=== PATIENT | female | born 1945 | race Caucasian/White ===

== ENCOUNTER 2018-06-22 10:44 | Outpatient (CLI) | payer MEDICARE, MEDICAID ==
[~2018-06-22] VITALS: Ht 160 cm; Wt 61.4 kg
--- NOTE | ~2018-06-22 | HEMODYNAMI ---
PATIENT:TERRANCE CHAPA MEDICAL RECORD: [id number] : 43 LOCATION:[facility] ADMISSION DATE: 06/22/18 Generatedon:06/22/201814:05 Patient name: TERRANCE CHAPA Patient #: [id number] SSN: : Date of study: 06/22/2018 Page: Of Hemodynamic Procedure Report Patient Data Patient Demographics Procedure consent was obtained First Name: TERRANCE Gender: Female Last Name: EDUARD : 1945 Patient #: [id number] Age: 72 year(s) Race: Unknown Additional ID: [id number] Contact details [address]: [address] [place] [address] State: [place] City: [place] Zip code: [address] Past Medical History Allergies Allergen Reaction Date Comments Reported Other allergy 06/22/2018 Cephalexin Admission Admission Data Admission Date: 06/22/2018 Admission Time: 10:44 Admit Source: Other Lab Results Lab Result Date: 06/22/2018 Lab Result Time: 11:56 Biochemistry Name Units Result Min Max BUN mg/dl 13 --(--*-)-- 7 18 Creatinine mg/dl 0.4 *-(----)-- 0.6 1.3 CBC Name Units Result Min Max Hematocrit % 45.3 --(-*--)-- 42 54 Hemoglobin g/dl 15.5 --(-*--)-- 13.5 17.5 Procedure Procedure Types Cath Procedure Diagnostic Procedure LHC LHC w/Coronaries Sedation Charges Moderate Sedation up to 15 minutes PCI Procedure Coronary Stent Coronary Stent Initial Procedure Description Procedure Date Procedure Date: 06/22/2018 Procedure Start Time: 13:41 Procedure End Time: 14:04 Procedure Staff Name Function Hank Caceres MD Performing Physician Rohit Vora RT Monitor Safia Marshall RT Scrub Swati Stacy RN Nurse Procedure Data Cath Procedure Fluoroscopy Diagnostic fluoroscopy Total fluoroscopy Time: 4.3 time: 4.3 min min Diagnostic fluoroscopy Total fluoroscopy dose: 734 dose: 734 mGy mGy Contrast Material Contrast Material Type Amount (ml) Isovue 300 102 Entry Location Entry Primary Successful Side Size Upsize Upsize Entry Closure Clemente ccessful Closure Location (Fr) 1 (Fr) 2 (Fr) Remarks Device Remarks Radial Right 6 Fr Mechanical artery Short Compression Estimated blood loss: 10 ml Diagnostic catheters Device Type Used For End Catheter Placement DIAGNOSTIC Trion 110cm 5 Procedure Fr catheter ([id number]) Procedure Complications No complications Procedure Medications Medication Administration Route Dosage Oxygen NC 2 l/min Lidocaine 2% added to field 20 Heparin Flush Bag added to field 2 bags (1000units/500ml NS) 0.9% NaCl I.V. 100 ml/hr Radial Cocktail I.A. 1 syringe (Verapomil 2mg/Nitro 400mcg/Heparin 1500units) Versed I.V. 1 mg Fentanyl I.V. 50 mcg Versed I.V. 0.5 mg Fentanyl I.V. 25 mcg Heparin Bolus I.V. 6000 units Versed I.V. 0.5 mg Fentanyl I.V. 25 mcg Plavix P.O. 600 mg Hemodynamics Rest HGB: 15.5 (g/dl) Heart Rate: 67 (bpm) Pressure Samples Time Site Value (mmHg) Purpose Heart Use Rate(bpm) 13:44 LV 106/1,8 Snapshot 70 13:45 AO 106/52(76) Pullback 72 13:45 LV 108/3,11 Pullback 72 13:45 AO 146/52(65) Snapshot 71 Gradients Valve Time Site 1 Site 2 Mean SEP/DFP Peak To Heart Use (mmHg) (sec/min) Peak Rate (mmHg) (bpm) Aortic 13:45 LV AO 7 17 2 72 108/3,11 106/52(76) Calculations Valve P-P Mean Valve Index Valve Source Name Gradient Area Flow (cm2) Aortic 2 7 2 7 Snapshots Pre Cath Intra NCS Post Cath Vital Signs Time Heart Resp SPO2 etCO2 NIBP (mmHg) Rhythm Pain Sedation Rate (ipm) (%) (mmHg) Status Level (bpm) 13:27:28 69 50 96 0 142/66(114) NSR 0 (11) 10(A) , No pain 13:31:34 69 19 92 0 120/65(96) NSR 0 (11) 10(A) , No pain 13:35:36 67 16 93 0 122/67(100) NSR 0 (11) 10(A) , No pain 13:39:39 62 17 92 0 121/64(94) NSR 0 (11) 9(A) , No pain 13:43:49 70 16 95 0 116/57(82) NSR 0 (11) 9(A) , No pain 13:47:55 67 16 93 0 106/61(81) NSR 0 (11) 9(A) , No pain 13:52:01 71 14 92 0 105/59(80) NSR 0 (11) 9(A) , No pain 13:56:09 70 16 95 0 107/56(85) NSR 0 (11) 9(A) , No pain 14:00:15 72 15 95 0 110/62(74) NSR 0 (11) 10(A) , No pain 14:04:18 70 14 98 0 117/64(87) NSR 0 (11) 10(A) , No pain Medications Time Medication Route Dose Verified Delivered Reason Note s Effectiveness by by 13:27:43 Oxygen NC 2 l/min Hank Buffie used for Henry Stacy RN procedure 13:27:50 Lidocaine 2% added 20ml Hank Hank for local to vial Henry Caceres MD anesthetic field 13:27:59 Heparin Flush added 2 bags Hank Hank used for Bag to Henry Caceres MD procedure (1000units/500ml field NS) 13:28:08 0.9% NaCl I.V. 100 Hank Buffie Per physician ml/hr Henry Stacy RN 13:28:20 Radial Cocktail I.A. 1 Hank Hank for (Verapomil syringe Henry Caceres MD vasodilation 2mg/Nitro 400mcg/Heparin 1500units) 13:35:49 Versed I.V. 1 mg Hank Buffie for sedation Henry Stacy RN 13:35:55 Fentanyl I.V. 50 mcg Ahnk Buffie for sedation Henry Stacy RN 13:40:39 Versed I.V. 0.5 mg Hank Buffie for sedation Henry Stacy RN 13:40:44 Fentanyl I.V. 25 mcg Hank Buffie for sedation Henry Stacy RN 13:48:00 Versed I.V. 0.5 mg Hank Buffie for sedation Henry Stacy RN 13:48:04 Fentanyl I.V. 25 mcg Hank Longoria for sedation Henry Stacy RN 13:52:53 Heparin Bolus I.V. 6000 Hank Longoria for veri fied units Henry Stacy RN anticoagulation with dr caceres 14:03:34 Plavix P.O. 600 mg Hank Stacy RN antiplatelet therapy Procedure Log Time Note 13:08:39 Informed consent obtained and on chart 13:08:42 Admit Source: Other 13:08:55 Diagnostic Cath status Elective 13:08:57 Time tracking: Regular hours (M-F 7:00 - 5:00) 13:09:00 Plan of Care:Hemodynamics will remain stable., Cardiac rhythm will remain stable., Comfort level will be maintained., Respiratory function will remain adequate., Patient/ family verbilizes understanding of procedure., Procedure tolerated without complication., Recovers from procedure without complications.. 13:09:13 H&P Date Dictated: 06/14/2018 Within 30 days and on chart., H&P Addendum completed by physician on day of procedure. (MUST COMPLETE FOR ALL OUTPATIENTS). 13:14:22 Safia Counts RT(R) sent for patient. Start room use. 13:17:19 Patient received from Pre/Post Procedure Room to CCL 2 Alert and oriented. Tansferred to table in Supine position. 13:17:20 Warm blankets applied, and luz hugger turned on for patient comfort. 13:17:21 Correct patient and procedure confirmed by team. 13:17:21 ECG and BP/O2 sat monitors applied to patient. 13:17:23 Pre-procedure instructions explained to patient. 13:17:23 Pre-op teaching completed and patient verbalized understanding. 13:17:24 Family in waiting room. 13:17:25 Patient NPO since Breakfast. 13:26:28 Vital chart was started 13:27:43 Oxygen 2 l/min NC was administered by Swati Stacy RN; used for procedure; 13:27:50 Lidocaine 2% 20ml vial added to field was administered by Hank Caceres MD; for local anesthetic; 13:27:59 Heparin Flush Bag (1000units/500ml NS) 2 bags added to field was administered by Hank Caceres MD; used for procedure; 13:28:08 0.9% NaCl 100 ml/hr I.V. was administered by Swati Stacy RN; Per physician; 13:28:20 Radial Cocktail (Verapomil 2mg/Nitro 400mcg/Heparin 1500units) 1 syringe I.A. was administered by Hank Caceres MD; for vasodilation; 13:33:24 Baseline sample Acquired. 13:33:29 Rhythm: sinus rhythm 13:33:30 Full Disclosure recording started 13:33:44 Patient allergic to Other allergyCephalexin 13:33:45 Is the patient allergic to Iodine/contrast media? No. 13:33:49 Is patient on blood thinner?No 13:33:50 Patient diabetic? Yes. 13:33:53 If diabetic: On Metformin? Yes 13:33:57 If on Metformin: Last Dose? 06/20/2018 13:34:00 Previous problem with sedation/anesthesia? No ? 13:34:01 Snore? Yes 13:34:02 Sleep apnea? Yes 13:34:05 Deviated septum? No 13:34:06 Opens mouth fully? Yes 13:34:06 Sticks out tongue? Yes 13:34:12 Airway obstruction? Yes COPD 13:34:18 Dentures? Yes IN TIGHT 13:34:22 Modified Yonatan's test Ulnar < 7 seconds 13:34:23 Patient pain scale 0/10 ?. 13:34:31 IV patent on arrival in left wrist with 0.9% NaCl at [facility]. 13:34:59 Lab Result : BUN 13 mg/dl 13:34:59 Lab Result : Creatinine 0.4 mg/dl 13:34:59 Lab Result : Hemoglobin 15.5 g/dl 13:34:59 Lab Result : Hematocrit 45.3 % 13:35:01 Lab results completed and on chart. 13:35:03 Right Radial & Right Groin area was prepped with chlora-prep and draped in sterile fashion 13:35:04 Alarms reviewed by R. N. 13:35:04 Sharps counted by scrub and verified by R.N. 13:35:06 Use device set Radial Dx or PCI 13:35:07 ACIST Syringe (22905) opened to sterile field. 13:35:07 Medline Cath Pack ([id number]) opened to sterile field. 13:35:08 Bag Decanter (2002S) opened to sterile field. 13:35:09 ACIST Hand Control (33064) opened to sterile field. 13:35:09 ACIST Manifold (04790) opened to sterile field. 13:35:10 Tegaderm 4 x 4 (1626W) opened to sterile field. 13:35:10 MBrace Wrist Support ([id number]) opened to sterile field. 13:35:12 SHEATH 6Fr Prelude Radial ([id number]) opened to sterile field. 13:35:13 DIAGNOSTIC WIRE .035 260cm J wire (946877) opened to sterile field. 13:35:20 Physician arrived 13:35:20 --------ALL STOP TIME OUT------ 13:35:21 Final Timeout: patient, procedure, and site verified with staff and physician. All members of the team are in agreement. 13:35:22 Right Radial & Right Groin site verified by team. 13:35:25 Physical assessment completed. ASA score P 3 - A patient with severe systemic disease as per Hank Caceres MD. 13:35:28 Sedation plan: IV Moderate Sedation Medication:Versed, Fentanyl 13:35:49 Versed 1 mg I.V. was administered by Swati Stacy RN; for sedation; 13:35:55 Fentanyl 50 mcg I.V. was administered by Swati Stacy RN; for sedation; 13:40:27 Zero performed for pressure channel P1 13:40:39 Versed 0.5 mg I.V. was administered by Swati Stacy RN; for sedation; 13:40:44 Fentanyl 25 mcg I.V. was administered by Swati Stacy RN; for sedation; 13:41:00 Procedure started. 13:41:03 Local anesthetic to right radial artery with Lidocaine 2% by Hank Caceres MD.INITIAL ACCESS ONLY 13:42:13 A 6 Fr Short sheath was inserted into the Right Radial artery 13:43:50 A DIAGNOSTIC Trion 110cm 5 Fr catheter (270926) was advanced over the wire and used for Procedure. 13:44:32 LV gram done using BUSTILLOS 13:44:35 Injector settings: Ml/sec: 7, Volume: 15, 13:44:54 EF : 40 % 13:45:23 LCA angiography performed. 13:48:00 Versed 0.5 mg I.V. was administered by Buffie Stacy RN; for sedation; 13:48:04 Fentanyl 25 mcg I.V. was administered by Swati Stacy RN; for sedation; 13:48:28 RCA angiography performed. 13:51:08 GUIDE 6FR XBLAD 3.5 catheter ([id number]) opened to sterile field. 13:51:09 BMW 300cm Caldwell 2 J wire ([id number]) opened to sterile field. 13:51:09 INFLATOR Merit BasixCompak (SK2032) opened to sterile field. 13:51:13 TUBING High Pressure Extension Tubing (Henry) ([id number]) opened to sterile field. 13:51:18 Catheter removed. 13:51:25 6 Fr XBLAD 3.5 guide catheter was inserted over the wire 13:52:53 Heparin Bolus 6000 units I.V. was administered by Swati Stacy RN; for anticoagulation; verified with dr caceres 13:53:38 BMW wire advanced. 13:54:14 Wire advanced across lesion. 13:57:51 Place stent Inflation Number: 1 A INTEGRITY OTW 3.0 X 30 stent ([id number]) was prepped and advanced across the Prox LAD. The stent was deployed at 13 DEVEN for 0:10 (min:sec). 13:59:11 Stent catheter was removed intact over wire. 13:59:12 Wire removed. 13:59:12 Guide catheter removed. 13:59:17 TR BAND Standard ([id number]) opened to sterile field. 13:59:27 Sheath removed intact; hemostasis achieved with Mechanical Compression to the Right Radial artery. 13:59:29 Procedure ended.(Physican Out) 14:02:06 Fluoroscopy time 04.30 minutes. 14:02:10 Fluoroscopy dose: 734 mGy 14:02:10 Flurop Dose total: 734 14:02:15 Contrast amount:Isovue 300 102ml. 14:02:16 Sharps counted by scrub and verified by R.N. 14:02:19 TR band inflated with 12cc of air. 14:02:20 Insertion/operative site no bleeding no hematoma. 14:02:23 Post Procedure Pulses reassessed and unchanged 14:02:25 Post-procedure physical assessment completed. ASA score P 3 - A patient with severe systemic disease as per Hank Caceres MD. 14:02:27 Post procedure rhythm: unchanged. 14:02:29 Estimated blood loss: 10 ml 14:02:30 Post procedure instruction explained to patient.Patient verbalizes understanding. 14:02:31 Patient needs reinforcement of post procedure teaching. 14:03:10 Procedure type changed to Cath procedure, Diagnostic procedure, LHC, LHC w/Coronaries, Sedation Charges, Moderate Sedation up to 15 minutes, PCI procedure, Coronary Stent, Coronary Stent Initial 14:03:34 Plavix 600 mg P.O. was administered by Swati Stacy RN; for antiplatelet therapy; 14:04:01 Procedure and supply charges have been captured, reviewed, submitted and are correct. 14:04:03 Procedure Complication : No complications 14:04:05 Vital chart was stopped 14:04:06 See physician's report for complete and final results. 14:04:07 Report given to Pre/Post Procedure Room. 14:04:09 Patient transfered to Pre/Post Procedure Room with Stretcher. 14:04:10 Procedure ended. 14:04:10 Full Disclosure recording stopped 14:04:15 End room use (Document Last) Intervention Summary Intervention Notes Time ActionType Lesion and Equipment Action# Pressure Duration Attributes Used 13:57:51 Place stent Prox LAD INTEGRITY 1 13 00:10 OTW 3.0 X 30 stent ([id number]) Device Usage Item Name Manufacture Quantity Catalog Number Hospital Part Current M inimal Lot# / Charge Number Stock Stock Serial# Code ACIST Syringe Acist 1 52553 477614 852681 443277 2 0 (42062) Medical Systems Inc Medline Cath Cardinal 1 [id number] 621720 83544 239645 5 Pack Health ([id number]) Bag Decanter Microtek 1 760660 15594 454915 5 () Medical Inc. ACIST Hand Acist 1 41893 452779 593561 489504 5 Control (33380) [employer] Inc ACIST Manifold Acist 1 29916 241471 225247 235366 5 (66584) Medical Systems Inc Tegaderm 4 x 4 3M 1 1626W 971474 254240 680658 5 (1626W) MBrace Wrist Advanced 1 140-0250-00 569762 19779 045869 5 Support Vascular ([id number]) Dynamics SHEATH 6Fr Merit 1 [id number] 893187 914752 710686 5 Prelude Radial Medical ([id number]) DIAGNOSTIC WIRE St Noah 1 728829 939039 108185 671027 3 0 .035 260cm J wire (487256) DIAGNOSTIC Terumo 1 40-9118 739999 528202 813427 5 Trion 110cm 5 Fr catheter (298302) GUIDE 6FR XBLAD Cardinal 1 [id number] 861445 154299 819234 1 0 3.5 catheter Health (93794820) BMW 300cm Goldberg 1 [id number] 388813 002689 927130 5 Caldwell 2 J Vascular wire ([id number]) INFLATOR Merit Merit 1 WC3279 722067 535730 718725 1 5 [employer] (MW5648) TUBING High Merit 1 [id number] 395892 10819 210714 1 0 Pressure Medical Extension Tubing (Caceres) (UX3737I) INTEGRITY OTW Medtronic 1 [id number] 858427 296833 5 [id number] 3.0 X 30 stent ([id number]) TR BAND Terumo 1 [id number] 133483 728090 611856 4 0 Standard ([id number]) Signature Audit Parker Stage Time Signature Unsigned Intra-Procedure 06/22/2018 Rohit oVra 2:05:14 PM RT(R) Signatures Monitor : Rohit Vora RT Signature : Date : Time : [place] [address] [place] [place] [address]
[2018-06-22] MEDS ORDERED: NORVASC5 MG PO (11:27)
[2018-06-22] MEDS ORDERED: MOBIC7.5 MG PO (11:27)
[2018-06-22] MEDS ORDERED: LOPRESSOR25 MG PO (11:28)
[2018-06-22] MEDS ORDERED: PRAVASTATIN SOD10 MG PO (11:28)
[2018-06-22] MEDS ORDERED: PRINIVIL20 MG PO (11:29)
[2018-06-22] MEDS ORDERED: GLUCOPHAGE1000 MG PO (11:29)
[2018-06-22] MEDS ORDERED: PROAIR HFA8.5 GM INH (11:30)
[2018-06-22] MEDS ORDERED: SYMBICORT 16010.2 GM INH (11:30)
[2018-06-22] MEDS ORDERED: BAYER CHEWABLE81 MG PO (11:30)
[2018-06-22 11:41] VITALS: BP 129/76; Ht 160 cm; Wt 61.4 kg
[2018-06-22 12:04] LABS: CALC OSMOLALITY 273 mosm/kg (275-300); CALCIUM 9.4 mg/dL (8.5-10.1); CARBON DIOXIDE 31.7 mmol/L (21.0-32.0); CHLORIDE - SERUM 102 mmol/L (98-107); CREATININE - SERUM 0.4 mg/dL (0.6-1.3); GLUCOSE 131 mg/dL (74-106); SODIUM 136 mmol/L (136-145); UREA NITROGEN 13 mg/dL (7-18); eGFR NON AFRICAN AMERICAN > 90 mL/min (90-120)
[2018-06-22 12:07] LABS: POTASSIUM - SERUM 4.5 mmol/L (3.5-5.1)
[2018-06-22 13:08] LABS: BASOPHILS 0.2 % (0-2); EOSINOPHILS 5.6 % (0-7); HEMATOCRIT 45.3 % (36.0-48.0); HEMOGLOBIN 15.5 g/dL (12-16); IMMATURE GRANULOCYTES 0.2 % (0-5); MCH 32.6 pg (26.0-34.0); MCHC 34.2 g/dL (31.0-37.0); MCV 95.4 fL (80.0-100.0); MEAN PLATELET VOLUME 12.1 fL (7.4-10.4); MONOCYTES 9.4 % (2-11); NEUTROPHILS 57.6 % (40-80); PLATELET COUNT 318 10x3/uL (130-400); RBC 4.75 10x6/uL (4.00-5.40); RDW 14.3 % (11.5-14.5)
[2018-06-22] MEDS ORDERED: PLAVIX75 MG PO (14:12)
== END 2018-06-22 18:30 | disposition home or self-care (01) ==
LOC: D.CATH 10:44
PROVIDERS: Internal Medicine Cardiovascular Disease
DX: I25.119 Atherosclerotic heart disease of native coronary artery with unspecified angina pectoris (principal); Z01.812 Encounter for preprocedural laboratory examination